=== PATIENT | male | born 1970 | race Asian ===

== ENCOUNTER 2019-12-27 15:32 | Emergency (ER) | payer BC ==
[~2019-12-27] VITALS: Ht 165.1 cm; Wt 63.5 kg
[2019-12-27 17:27] VITALS: Ht 165.1 cm; Wt 63.5 kg
[2019-12-27 17:37] VITALS: BP 133/76
== END 2019-12-27 17:37 | disposition home or self-care (01) ==
LOC: ED 15:32
DX: Z11.8 Encounter for screening for other infectious and parasitic diseases (principal)